=== PATIENT | male | born 1955 | race Hispanic/Latino ===

== ENCOUNTER 2016-06-20 21:52 | Inpatient (IN) | payer OTHER ==
[2016-06-20 21:54] VITALS: BMI 25.0
[2016-06-20] MEDS ORDERED: Vancomycin 1gm in NS 250ml 250 ML IVPB STA (22:06)
[2016-06-20] MEDS ORDERED: Piperacill/Tazo 4.5gm in NS 100 ML IVPB STA (22:06)
[2016-06-20 22:18] LABS: ADD MANUAL DIFF? NO
--- NOTE | 2016-06-20 22:22 | ED PDOC ---
Arrival/HPI - General Historian: Patient - History of Present Illness Time/Duration: 1/2 hour Symptom Onset: Gradual Symptom Course: Unchanged Severity Level: Mild Activities at Onset: Light Context: Home <Darion Buitrago - Last Filed: 06/20/16 22:53> <Mike Crowley - Last Filed: 06/23/16 17:30> - General Chief Complaint: Substance Abuse Time Seen by Provider: 06/20/16 21:56 - History of Present Illness Narrative History of Present Illness (Text): 06/20/16 22:20 Eliecer Sousa is a 61 year old male who presents to the emergency department for evaluation of altered mental status. As per EMS and nursing reports, patient was found altered pacing back and forth, and speaking incoherently. Currently in the emergency department patient denies any complaints and does not know who called the ambulance or why he is here. ROS limited due to AMS. (Darion Buitrago) Past Medical History - Provider Review Nursing Documentation Reviewed: Yes - Infectious Disease Hx of Infectious Diseases: None - Psychiatric Hx Substance Use: Yes (unknown) - Anesthesia Hx Anesthesia: No Hx Anesthesia Reactions: No Hx Malignant Hyperthermia: No <Darion Buitrago - Last Filed: 06/20/16 22:53> Family/Social History - Physician Review Nursing Documentation Reviewed: Yes Family/Social History: No Known Family HX Smoking Status: Unknown If Ever Smoked Hx Alcohol Use: No Hx Substance Use: Yes (unknown) <Darion Buitrago - Last Filed: 06/20/16 22:53> Allergies/Home Meds <Darion Buitrago - Last Filed: 06/20/16 22:53> <Mike Crowley - Last Filed: 06/23/16 17:30> Allergies/Adverse Reactions: Allergies No Known Allergies Allergy (Verified 06/20/16 21:54) Home Medications: Home Meds Medication Instructions Recorded Confirmed Unobtainable 06/21/16 06/21/16 Review of Systems - Review of Systems Systems not reviewed;Unavailable: Altered Mental Status <Darion Buitrago - Last Filed: 06/20/16 22:53> Physical Exam Vital Signs Reviewed: Yes Temperature: Febrile Blood Pressure: Normal Pulse: Tachycardic Respiratory Rate: Normal Appearance: Positive for: Non-Toxic, Comfortable Pain Distress: None Mental Status: Positive for: other (Alert only to name. ) <Darion Buitrago - Last Filed: 06/20/16 22:53> <Mike Crowley - Last Filed: 06/23/16 17:30> - Physical Exam Narrative Physical Exam (Text): - Physical exam Patient appears age appropriate and alert only to name. - Systems Exam Head: Present: Atraumatic, Normocephalic Pupils: Present: PERRL Extraocular Muscles: Present: EOMI Conjunctiva: Present: Normal Mouth: Present: Moist Mucous Membranes Neck: Present: Normal Range of Motion. No: MIDLINE TENDERNESS, Paraspinal Tenderness Respiratory/Chest: Present: Clear to Auscultation, Good Air Exchange. No: Respiratory Distress, Accessory Muscle Use, Tachypneic Cardiovascular: Present: Tachycardia, Normal S1, S2, Peripheral Pulses Present. No: Murmurs Abdomen: Present: Normal Bowel Sounds, No: Tenderness, Peritoneal Signs, Rebound, Guarding, Distention Back: Present: Normal Inspection. No: Midline Tenderness, Paraspinal Tenderness Upper Extremity: Present: Normal Inspection. No: Cyanosis, Edema Lower Extremity: Present: Normal Inspection. No: Edema Neurological: Present: GCS=15, cranial nerves II through XII fully intact with no cerebellar abnormality, neuro-sensory fully intact. No focal neurological deficits. Skin: Present: Diaphoresis, Warm, Dry, Normal Color. No: Rashes Lymphatic: Present: OX3, NI, NC Psychiatric: Present: Alert only to name. (Darion Buitrago) Vital Signs Temp Pulse Resp BP Pulse Ox 06/21/16 04:31 68 18 138/81 96 06/21/16 03:11 98.0 F 79 16 153/73 H 95 06/21/16 01:10 97.9 F 102 H 16 117/75 96 06/21/16 00:33 98 F 96 H 16 145/86 95 06/20/16 22:36 101.1 F H 06/20/16 21:54 101.6 F H 116 H 20 146/65 96 Medical Decision Making <Darion Buitrago - Last Filed: 06/20/16 22:53> - RAD Interpretation Senior Analyst Programmer: Radiologist <Mike Crowley - Last Filed: 06/23/16 17:30> ED Course and Treatment: 06/20/16 22:26 Impression: A 61 year old male who presents to the emergency department for AMS. Patient with elevated temperature and appropriately tachy at 115 bpm. Differential Diagnosis include but are not limited to: Sepsis vs. dehydration Plan: -- CT Head -- EKG -- Labs, cardiac enzymes -- Drug screen -- Chest X-ray -- IV fluids -- Tylenol -- Vancomycin -- Zosyn -- Blood culture -- Urine culture -- Rapid flu -- Urinalysis -- Reassess and disposition Progress Notes: 06/20/16 22:29 EKG interpreted by me: Sinus Tachycardia @ [address]-segment elevations, normal intervals. 06/20/16 23:[address] Crowley, pending imaging, reeval, admission (Darion Buitrago) 06/21/16 01:10 CT Head results reviewed: IMPRESSION: No acute intracranial hemorrhage, or suspicious mass effect 06/21/16 01:[address] Robertson who agrees with the plan to admit patient to the hospital. Accepts patient under his service. 06/23/16 17:30 (Mike Crowley) - Lab Interpretations Microbiology Results: Microbiology Results 06/20/16 22:53 Blood Blood Culture - Preliminary NO GROWTH AFTER 48 HOURS 06/20/16 22:21 Blood Blood Culture - Preliminary NO GROWTH AFTER 48 HOURS 06/20/16 23:00 Urine Urine Culture - Final No Growth (<1,000 CFU/ML) Lab Results: 06/20/16 22:05 06/20/16 22:05 Lab Results 06/21/16 01:10: Influenza Typ A,B (EIA) Negative for flu a/b 06/20/16 23:00: Urine Color Yellow, Urine Appearance Slight-cloudy, Urine pH 5.5 , Ur Specific [place] >= 1.030, Urine Protein Trace H, Urine Glucose (UA) Negative, Urine Ketones Negative, Urine Blood Negative, Urine Nitrate Negative, Urine Bilirubin Negative, Urine Urobilinogen 1.0 H, Ur Leukocyte Esterase Negative, Urine RBC 0 - 2, Urine WBC 0 - 2, Ur Epithelial Cells 0 - 2, Urine Bacteria Rare, Hyaline Casts 0 - 2, Urine Opiates Screen Positive H, Urine Methadone Screen Negative, Ur Barbiturates Screen Negative, Ur Phencyclidine Scrn Negative, Ur Amphetamines Screen Negative, U Benzodiazepines Scrn Negative , U Oth Cocaine Metabols Negative, U Cannabinoids Screen Negative 06/20/16 22:05: WBC 7.6, RBC 4.14, Hgb 12.4 L, Hct 38.6 L, MCV 93.2, MCH 30.0, MCHC 32.1, RDW 14.7 H, Plt Count 141, MPV 10.7, Gran % 71.5 H, Lymph % (Auto) 14.3 L, [place] % (Auto) 13.6 H, Eos % (Auto) 0.5 L, Baso % (Auto) 0.1, Gran # 5.45 , Lymph # 1.1 L, [place] # 1.0 H, Eos # 0.0, Baso # 0.01, PT 12.2 H, INR 1.13 H, APTT 23.8, pO2 75 H, VBG pH 7.28 L, VBG pCO2 54.0, VBG HCO3 25.4, VBG Total CO2 27.1, VBG O2 Sat (Calc) 96.2 H, VBG Base Excess -2.2 L, VBG Potassium 4.7, Glucose 120 H, Lactate 1.4, FiO2 21.0, Sodium 139.0, Potassium 4.8, Chloride 107.0, Carbon Dioxide 26, Anion Gap 14, BUN 15, Creatinine 1.2, Est GFR ( Amer) > 60, Est GFR (Non-Af Amer) > 60, Random Glucose 119 H, Calcium 8.7, Phosphorus 4.0, Magnesium 1.7, Total Bilirubin 1.2, AST 60 H, ALT 56, Alkaline Phosphatase 74, Lactate Dehydrogenase 535, Total Creatine Kinase 152, Troponin I < 0.01, Total Protein 8.1, Albumin 4.1, Globulin 4.0, Albumin/ Globulin Ratio 1.0 L, Venous Blood Potassium 4.7 - RAD Interpretation Narrative RAD Interpretations (Text): EXAM: CT Head Without Intravenous Contrast FINDINGS: Brain: No acute intracranial hemorrhage. Age-appropriate periventricular white matter disease. No edema. Ventricles: Age-appropriate ventriculomegaly. Bones: No acute displaced fracture. Sinuses: Unremarkable as visualized. No acute sinusitis. Mastoid air cells: Unremarkable as visualized. No mastoid effusion. IMPRESSION: No acute intracranial hemorrhage, or suspicious mass effect (Mike Crowley) Radiology Orders: 06/20/16 22:04 HEAD W/O CONTRAST [CT] Stat 06/20/16 22:06 CHEST PORTABLE [RAD] Stat - Medication Orders Current Medication Orders: Acetaminophen (Tylenol 325mg Tab) 650 mg PO Q4H PRN PRN Reason: Fever >100.5 F Albuterol/Ipratropium (Duoneb 3 Mg/0.5 Mg (3 Ml) Ud) 3 ml IH [id number] [facility] Last Admin: 06/23/16 13:35 Dose: 3 ML Apixaban (Eliquis) 10 mg PO BID CATHRYN PRN Reason: Protocol Last Admin: 06/23/16 10:38 Dose: 10 MG Azithromycin (Zithromax) 500 mg PO DAILY [facility] PRN Reason: Protocol Last Admin: 06/23/16 10:38 Dose: 500 MG Ceftriaxone Sodium (Rocephin 1 Gram Ivpb) 100 mls @ 100 mls/hr IVPB DAILY [facility] PRN Reason: Protocol Last Admin: 06/23/16 10:39 Dose: 100 MLS/HR eMAR Start Stop Document 06/23/16 10:39 MCV (Rec: 06/23/16 10:40 MCV [id number]) Intravenous Solution Start Date 06/23/16 Start Time 10:39 End Date 06/23/16 End time 11:39 Total Infusion Time 60 Losartan Potassium (Cozaar) 50 mg PO DAILY [facility] Last Admin: 06/23/16 10:38 Dose: 50 MG MAR Pulse and Blood Pressure Document 06/23/16 10:38 MCV (Rec: 06/23/16 10:39 MCV [id number]) Pulse Pulse Rate (60-90) 67 Blood Pressure Blood Pressure (100/60-150/90) 126/76 Discontinued Medications Acetaminophen (Tylenol 325mg Tab) 975 mg PO STAT STA Stop: 06/20/16 22:06 Last Admin: 06/20/16 22:36 Dose: 975 MG MAR Pain/Vitals Document 06/20/16 22:36 FJA (Rec: 06/20/16 22:36 FJA [id number]) Vitals Temperature (97.6 F-99.6 F) 101.1 F Temperature Source Rectal Sodium Chloride (Sodium Chloride 0.9%) 2,200 mls @ 1,000 mls/hr IV .Q2H12M STA Stop: 06/21/16 00:16 Last Admin: 06/20/16 22:27 Dose: 1,000 MLS/HR eMAR Start Stop Document 06/20/16 22:27 FJA (Rec: 06/20/16 22:27 FJA [id number]) Intravenous Solution Start Date 06/20/16 Start Time 22:27 End Date 06/21/16 End time 00:27 Total Infusion Time 120 Piperacillin Sod/Tazobactam Sod (Zosyn 4.5 Gm In Ns 100ml) 100 mls @ 200 mls/ hr IVPB STAT STA PRN Reason: Protocol Stop: 06/20/16 22:35 Last Admin: 06/20/16 22:37 Dose: 200 MLS/HR eMAR Start Stop Document 06/20/16 22:37 FJA (Rec: 06/20/16 22:37 FJA [id number]) Intravenous Solution Start Date 06/20/16 Start Time 22:37 End Date 06/20/16 End time 23:07 Total Infusion Time 30 Vancomycin HCl (Vancomycin 1gm) 250 mls @ 167 mls/hr IVPB STAT STA PRN Reason: Protocol Stop: 06/20/16 23:35 Last Admin: 06/21/16 00:31 Dose: 167 MLS/HR eMAR Start Stop Document 06/21/16 00:31 FJA (Rec: 06/21/16 00:32 FJA [id number]) Intravenous Solution Start Date 06/21/16 Start Time 00:31 End Date 06/21/16 End time 02:01 Total Infusion Time 90 Acyclovir 700 mg/ Sodium (Chloride) 100 mls @ 100 mls/hr IV STAT STA PRN Reason: Protocol Stop: 06/21/16 04:00 Last Admin: 06/21/16 04:37 Dose: 100 MLS/HR eMAR Start Stop Document 06/21/16 04:37 GMD (Rec: 06/21/16 04:37 GMD [id number]) Intravenous Solution Start Date 06/21/16 Start Time 04:37 End Date 06/21/16 End time 05:37 Total Infusion Time 60 Sodium Chloride (Sodium Chloride 0.9%) 1,000 mls @ 100 mls/hr IV .Q10H STA Stop: 06/21/16 13:02 Last Admin: 06/21/16 04:21 Dose: 100 MLS/HR eMAR Start Stop Document 06/21/16 04:21 GMD (Rec: 06/21/16 04:21 GMD [id number]) Intravenous Solution Start Date 06/21/16 Start Time 04:21 Piperacillin Sod/Tazobactam Sod (Zosyn 3.375 In Ns 100ml) 100 mls @ 200 mls/hr IVPB Q6 CATHRYN PRN Reason: Protocol Stop: 06/22/16 00:29 Last Admin: 06/21/16 23:59 Dose: 200 MLS/HR eMAR Start Stop Document 06/21/16 23:59 [email or web address] (Rec: 06/21/16 23:59 [email or web address] [id number]) Intravenous Solution Start Date 06/21/16 Start Time 23:59 End Date 06/22/16 End time 00:30 Total Infusion Time 31 Iodixanol (Visipaque 320 Mg/Ml 100 Ml) Confirm Administered Dose 100 ml IV .STK- MED ONE Stop: 06/21/16 14:40 - Scribe Statement The provider has reviewed the documentation as recorded by the Scribe <Darion Buitrago - Last Filed: 06/20/16 22:53> <Mike Crowley - Last Filed: 06/23/16 17:30> - Scribe Statement Harish Riojas (Darion Buitrago) Provider Attestation: All medical record entries made by the Scribe were at my direction and personally dictated by me. I have reviewed the chart and agree that the record accurately reflects my personal performance of the history, physical exam, medical decision making, and the department course for this patient. I have also personally directed, reviewed, and agree with the discharge instructions and disposition. (Darion Buitrago) Disposition/Present on Arrival - Present on Arrival Any Indicators Present on Arrival: No History of DVT/PE: No History of Uncontrolled Diabetes: No Urinary Catheter: No History of Decub. Ulcer: No History Surgical Site Infection Following: None - Disposition Have Diagnosis and Disposition been Completed?: Yes Disposition Time: 23:07 Patient Plan: Admission <Darion Buitrago - Last Filed: 06/20/16 22:53> - Present on Arrival Any Indicators Present on Arrival: No - Disposition Have Diagnosis and Disposition been Completed?: Yes Disposition Time: 02:00 <Mike Crowley - Last Filed: 06/23/16 17:30> - Disposition Diagnosis: Fever, Altered mental status Disposition: HOSPITALIZED Patient Problems: Current Active Problems Problem Status Diagnosed Fever Acute Condition: FAIR
[2016-06-20 22:26] LABS: VENOUS BLOOD GAS BASE EXCESS -2.2 mmol/L (0.0-2.0); VENOUS BLOOD PH 7.28 (7.32-7.43)
--- NOTE | 2016-06-20 22:28 | ED PDOC ---
Arrival/HPI - General Chief Complaint: Substance Abuse Time Seen by Provider: 06/20/16 21:56 Past Medical History - Infectious Disease Hx of Infectious Diseases: None - Psychiatric Hx Substance Use: Yes (unknown) - Anesthesia Hx Anesthesia: No Hx Anesthesia Reactions: No Hx Malignant Hyperthermia: No Family/Social History Smoking Status: Unknown If Ever Smoked Hx Alcohol Use: No Hx Substance Use: Yes (unknown) Allergies/Home Meds Allergies/Adverse Reactions: Allergies No Known Allergies Allergy (Verified 06/20/16 21:54) Physical Exam Vital Signs Temp Pulse Resp BP Pulse Ox 06/20/16 21:54 101.6 F H 116 H 20 146/65 96 Medical Decision Making - RAD Interpretation Radiology Orders: 06/20/16 22:04 HEAD W/O CONTRAST [CT] Stat 06/20/16 22:06 CHEST PORTABLE [RAD] Stat - Medication Orders Current Medication Orders: Acetaminophen (Tylenol 325mg Tab) 975 mg PO STAT STA Stop: 06/20/16 22:06 Sodium Chloride (Sodium Chloride 0.9%) 2,200 mls @ 1,000 mls/hr IV .Q2H12M STA Stop: 06/21/16 00:16 Piperacillin Sod/Tazobactam Sod (Zosyn 4.5 Gm In Ns 100ml) 100 mls @ 200 mls/ hr IVPB STAT STA PRN Reason: Protocol Stop: 06/20/16 22:35 Vancomycin HCl (Vancomycin 1gm) 250 mls @ 167 mls/hr IVPB STAT STA PRN Reason: Protocol Stop: 06/20/16 23:35 Disposition/Present on Arrival - Present on Arrival History of DVT/PE: No History of Uncontrolled Diabetes: No Urinary Catheter: No History of Decub. Ulcer: No History Surgical Site Infection Following: None
[2016-06-20 22:32] LABS: ALKALINE PHOSPHATASE 74 U/L (38-133); ALT/SGPT 56 U/L (7-56); AST/SGOT 60 U/L (15-59); BILIRUBIN,TOTAL 1.2 mg/dL (0.2-1.3); BLOOD UREA NITROGEN 15 mg/dL (7-21); CALCIUM 8.7 mg/dL (8.4-10.5); CARBON DIOXIDE 26 mmol/L (21-33); CHLORIDE 104 mmol/L (98-107); GFR AFRICAN-AMERICAN > 60; GLUCOSE,RANDOM 119 mg/dL (70-110); MAGNESIUM 1.7 mg/dL (1.7-2.2); POTASSIUM 4.8 mmol/L (3.6-5.0); SODIUM 139 mmol/L (132-148); TOTAL PROTEIN 8.1 g/dL (5.8-8.3)
[2016-06-20 22:38] LABS: INR 1.13 (0.93-1.08); PARTIAL THROMBOPLASTIN TIME 23.8 Seconds (23.7-30.8)
[2016-06-20 22:47] LABS: TROPONIN I < 0.01 ng/mL
[2016-06-20 22:57] LABS: GRAN % 71.5 % (50.0-68.0); HEMATOCRIT 38.6 % (42.0-52.0); LYMPH % 14.3 % (22.0-35.0); MEAN CELL VOLUME 93.2 fL (80.0-105.0); MEAN CORPUSCULAR HGB CONC 32.1 g/dl (31.0-37.0); MEAN PLATELET VOLUME 10.7 fl (7.0-11.0); MONO % 13.6 % (1.0-6.0); PLATELET COUNT 141 10^3/uL (120.0-450.0); RED CELL DISTRIBUTION WIDTH 14.7 % (11.5-14.5); WHITE BLOOD COUNT 7.6 10^3/ul (4.5-11.0)
[2016-06-20 22:58] LABS: BASO # 0.01 K/mm3 (0.0-2.0); BASO % 0.1 % (0.0-3.0); EOS % 0.5 % (1.5-5.0); GRAN # 5.45 (1.4-6.5); LYMPH # 1.1 (1.2-3.4)
[2016-06-20 23:31] LABS: PH,URINE 5.5 (4.7-8.0); URINE BILIRUBIN NEGATIVE (NEGATIVE); URINE BLOOD NEGATIVE (NEGATIVE); URINE GLUCOSE (UA) NEGATIVE (NEGATIVE); URINE KETONE NEGATIVE (NEGATIVE); URINE LEUKOCYTE ESTERASE NEGATIVE Leu/uL (NEGATIVE); URINE PROTEIN TRACE mg/dL (<30 mg/dL)
[2016-06-20 23:45] LABS: URINE APPEARANCE SLIGHT-CLOUDY (CLEAR); URINE COLOR YELLOW (YELLOW)
[2016-06-21 00:40] LABS: URINE BACTERIA RARE (NEG); URINE EPITHELIAL CELLS 0 - 2 /hpf (0-5); URINE RBC 0 - 2 /hpf (0-2); URINE WBC 0 - 2 /hpf (0-6)
[2016-06-21] MEDS ORDERED: Sodium Chloride 0.9% 1,000 ML IV STA (03:03)
--- NOTE | 2016-06-21 08:05 | CT ---
PROCEDURE: CT HEAD WITHOUT CONTRAST. HISTORY: ONEILL x2 weeks COMPARISON: None available. TECHNIQUE: Axial computed tomography images were obtained through the head/brain without intravenous contrast. Radiation dose: Total exam DLP = 896.20 mGy-cm. This CT exam was performed using one or more of the following dose reduction techniques: Automated exposure control, adjustment of the mA and/or kV according to patient size, and/or use of iterative reconstruction technique. FINDINGS: HEMORRHAGE: No intracranial hemorrhage. BRAIN: No mass effect or edema. Minimal diffuse age-appropriate cerebral atrophy. No significant chronic white matter ischemic change. VENTRICLES: Unremarkable. No hydrocephalus. CALVARIUM: Unremarkable. PARANASAL SINUSES: Unremarkable as visualized. No significant inflammatory changes. MASTOID AIR CELLS: Unremarkable as visualized. No inflammatory changes. OTHER FINDINGS: None. IMPRESSION: No intracranial mass, hemorrhage or evidence of acute infarct. Preliminary interpretation of this examination was reported by [facility] at 11:30 p.m. on 06/20/2016. There is concurrence of this report with the preliminary interpretation.
--- NOTE | 2016-06-21 08:40 | RAD ---
HISTORY: Sepsis Patient COMPARISON: No prior. FINDINGS: LUNGS: No active pulmonary disease. PLEURA: No significant pleural effusion identified, no pneumothorax apparent. CARDIOVASCULAR: Normal. OSSEOUS STRUCTURES: No significant abnormalities. VISUALIZED UPPER ABDOMEN: Normal. OTHER FINDINGS: None. IMPRESSION: No active disease.
[2016-06-21] MEDS ORDERED: Iodixanol 320 MG/ML 100 ML BOTTLE IV ONE (14:39)
--- NOTE | 2016-06-21 15:45 | HP ---
HISTORY OF PRESENT ILLNESS: The patient is a 61-year-old male with no history of hypertension, diabe nikos or heart disease, admitted through the Emergency Department on 06/20/2016 with altered mental sta tus with confusion of undetermined duration, fever of 101.6 and tachycardia. The patient is admitted to the surgical floor and given a dose of Zosyn and vancomycin empirically for possible cellulitis o f the left leg. The patient denies any chest pain or shortness of breath. He reports being confused over the past several months. PAST MEDICAL HISTORY: Includes lumbar radiculopathy with chronic opiate dependence. PAST SURGICAL HISTORY: The patient has no significant past surgical history. CURRENT MEDICATIONS: Include oxycodone 30 mg q. 6 hours. ALLERGIES: The patient has no known drug allergies. SOCIAL HISTORY: There is no history of tobacco, alcohol or drug use. FAMILY HISTORY: Noncontributory. REVIEW OF SYSTEMS: Essentially negative other than as above. PHYSICAL EXAMINATION: GENERAL: The patient is a well-developed male in no acute distress. VITAL SIGNS: Blood pressure 151/88, temperature 98, pulse 62, respiratory rate 20. HEENT: Head is normocephalic, atraumatic. Pupils equal, round, reactive to light. Extraocular move ments intact. NECK: Supple, with no thyromegaly, no carotid bruit, no adenopathy. LUNGS: Clear. HEART: Regular rate and rhythm. ABDOMEN: Soft, nontender, bowel sounds are normoactive. EXTREMITIES: Without cyanosis or clubbing. There is some swelling of the left lower extremity with mild warmth, dorsalis pedis, posterior tibial and popliteal pulses are intact. NEUROLOGIC: The patient is awake and slightly confused without focal sensory or motor deficits. SKIN: Warm and dry. LABORATORY DATA: WBC is 7.6, hemoglobin 12.4, hematocrit 38.6, sodium 139, potassium 4.8, chloride 1 04, CO2 26, BUN 15, creatinine 1.2, glucose 119. ABG shows pH 7.28, pCO2 of 54, pO2 75, bicarbonate 25.4, O2 saturation 96.2% on room air. D-dimer is slightly elevated at 0.69. IMPRESSION: 1. Altered mental status, rule out due to acute infection, possible cellulitis of the left leg, rule out acute pulmonary embolism. 2. Hypertension. 3. History of lumbar radiculopathy with opiate dependence. PLAN: The patient is admitted to the medical surgical floor. We will obtain stat venous Doppler and CT angiogram of chest. The patient has been started empirically on Zosyn 3.375 grams q. 6 hours for possible cellulitis of the left leg. We will monitor closely. George Robertson JD, MD cc: [phone] TT: 06/21/2016 15:44:48 an
--- NOTE | 2016-06-21 15:55 | CT ---
PROCEDURE: CT Chest with contrast (Pulmonary Angiogram) HISTORY: PE COMPARISON: None available. TECHNIQUE: Axial computed tomography images were obtained of the chest in the pulmonary arterial phase of enhancement. Coronal and sagittal reformatted images were created and reviewed. Intravenous contrast dose: 100 mL Visipaque 320 Radiation dose: Total exam DLP = 574.27 mGy-cm. This CT exam was performed using one or more of the following dose reduction techniques: Automated exposure control, adjustment of the mA and/or kV according to patient size, and/or use of iterative reconstruction technique. FINDINGS: PULMONARY ARTERIES: Unremarkable. No pulmonary embolism. AORTA: No acute findings. No thoracic aortic aneurysm. LUNGS: Few areas of patchy opacity in the left upper lobe rib, nonspecific. Possible early pneumonia. 7 mm noncalcified nodule in left lower lobe. As per Fleischner society criteria, followup in 6-12 months with noncontrast chest CT examination. PLEURAL SPACES: Unremarkable. No effusion or pneuomothorax. HEART: Unremarkable. No cardiomegaly. No significant pericardial effusion. LYMPH NODES: No lymphadenopathy. BONES, CHEST WALL: Unremarkable. No fracture or destructive lesion OTHER FINDINGS: Unremarkable. IMPRESSION: No evidence of pulmonary embolism. Few patchy opacities in the right upper lobe, nonspecific but possible early pneumonia. 7 mm nodule in left lower lobe. Followup in 6-12 months with noncontrast chest CT examination. Otherwise unremarkable.
[2016-06-21] MEDS: Piperacillin/Tazobact 3.375 gm 100 ML IVPB SCH ×2 (17:15→23:59)
--- NOTE | 2016-06-21 17:22 | US ---
PROCEDURE: Left lower extremity venous US HISTORY: Leg pain and swelling. Evaluate for DVT. PHYSICIAN(S): Guido Menjivar MD. TECHNIQUE: Duplex sonography and color-flow Doppler with graded compression were used to evaluate the deep venous system of the left lower extremity. FINDINGS: Adherent nonocclusive thrombus is noted in the left common femoral vein. The left femoral vein and proximal left profunda femoral vein are patent and normal. The left popliteal vein and visualized left tibial veins are patent and compressible. IMPRESSION: 1. Adherent, chronic, nonocclusive thrombus in the left common femoral vein.
--- NOTE | 2016-06-21 18:32 | CON ---
DATE: 06/21/2016 HISTORY OF PRESENT ILLNESS: This is a 61-year-old white male with a past medical history of hyperten amee, diabetes, who came to the Emergency Room with altered mental status and confusion with a fever of 101.6 and possible cellulitis of the left leg. The patient is ambulating. Less confused now. PAST MEDICAL HISTORY: Lumbar radiculopathy and chronic opiate dependence. CURRENT MEDICATIONS: Oxycodone 30 mg q.6 hours. SOCIAL HISTORY: Does not smoke or drink. REVIEW OF SYSTEMS: A 10-point review of system was negative except left leg pain. PHYSICAL EXAMINATION: HEENT: Normocephalic, atraumatic. VITAL SIGNS: Blood pressure 151/88. HEENT: Pupils reactive. EOM intact. NECK: Supple. NEUROLOGIC: Cranial nerves II through XII were tested. Pupils reactive. EOM intact. Visual garcia full. No facial asymmetry. Tongue midline. Motor examination: Moves all the extremities equally. Tone normal. Deep tendon reflexes 1+. Both plantars are downgoing. Sensory appears intact. Cere bellar and gait normal. IMPRESSION: Intermittent confusional state, encephalopathy, low back pain, possible lumbosacral radi culopathy, deep venous thrombosis, chronic. PLAN: Continue present management. Will followup. Dean Ko MD cc: [id number] TT: 06/21/2016 18:31:39 Confirmation # [id number] Dictation # [id number] kristy
--- NOTE | 2016-06-21 18:42 | CARD ---
APPROVED REPORT EKG Measurement Heart [id number] <Conclusion> Sinus tachycardia Otherwise normal ECG
[2016-06-22] MEDS: cefTRIAXone 1 gm 100 ML IVPB SCH (13:28)
--- NOTE | 2016-06-22 13:33 | PN ---
DATE: 06/22/2016 SUBJECTIVE: The patient is lying in bed, in no acute distress. There is no chest pain, no shortness of breath. OBJECTIVE: VITAL SIGNS: Blood pressure 160/91, temperature 98, pulse 91, respiratory rate 20. LUNGS: Clear. HEART: Regular rate and rhythm. ABDOMEN: Soft, nontender, bowel sounds are normoactive. EXTREMITIES: Without cyanosis, clubbing, or edema. NEUROLOGIC: The patient is awake and oriented x 3 without focal, sensory or motor deficits. SKIN: Warm and dry. LABORATORY DATA: Venous Doppler of the lower extremity shows a chronic nonocclusive thrombus of the left common femoral vein. CT scan of the chest shows a 7 mm pulmonary nodule in the left lower lobe with a few patchy opacities in the right upper lobe. IMPRESSION: 1. Altered mental status, rule out secondary to pneumonia, rule out secondary to cellulitis of the l ower extremities. 2. Chronic deep vein thrombosis of the lower extremities. 3. Lumbar radiculopathy with chronic pain and opiate dependence. PLAN: Neurology consult, Dr. Ko, is appreciated. CT scan of the lumbosacral spine is pending. We will start losartan 50 mg daily for elevated blood pressure. We will obtain pulmonary consultatio n with Dr. Prince. We will continue Eliquis at the present time and observe. We will continue IV an tibiotics with Rocephin 1 gram q. 24 hours as well. George Robertson JD, MD cc: [phone] TT: 06/22/2016 13:32:21 Confirmation # [id number] Dictation # [id number] en
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
[2016-06-22] MEDS: Albuterol-Ipratrop 3 mg / 0.5 (3 ml) UD IH SCH ×2 (20:30→23:47)
[2016-06-23] MEDS: Albuterol-Ipratrop 3 mg / 0.5 (3 ml) UD IH SCH ×4 (02:08→20:17)
[2016-06-23] MEDS: cefTRIAXone 1 gm 100 ML IVPB SCH (10:39)
--- NOTE | 2016-06-23 16:44 | PN ---
DATE: 06/23/2016 SUBJECTIVE: The patient is lying in bed in no acute distress. There is no chest pain or shortness o f breath. OBJECTIVE: VITAL SIGNS: Blood pressure 126/76, pulse 67, temperature 98.1, respiratory rate 20. LUNGS: Show a few scattered rhonchi. HEART: Regular rate and rhythm. ABDOMEN: Soft, nontender, bowel sounds are normoactive. EXTREMITIES: Without cyanosis, clubbing, or edema. NEUROLOGIC: The patient is awake and alert without focal, sensory or motor deficits. SKIN: Warm and dry. IMPRESSION: 1. Pneumonia. 2. Chronic deep vein thrombosis of the lower extremities. 3. Cellulitis of the left leg. 4. Lumbar radiculopathy with chronic pain and opiate dependence. 5. Altered mental status, rule out dementia with superimposed delirium. PLAN: Continue IV Rocephin, continue pulmonary followup with Dr. Prince, and neurology followup with Dr. Ko. We will continue Eliquis at the present time and observe. Social work for discharge [facility]. George Robertson JD, MD cc: [id number] TT: 06/23/2016 16:43:32 Confirmation # [id number] Dictation # [id number] alba
--- NOTE | 2016-06-23 22:40 | PN ---
DATE: 06/23/2016 REFERRING PHYSICIAN: Dr. Robertson. SUBJECTIVELY: He is lying in the bed, head at 45 degrees. Still has cough and shortness of breath. No nausea, no vomiting, no diarrhea. Leg pain and erythema is much better. OBJECTIVELY: No acute distress. Temp is 98, heart rate is 72, respiratory rate is 18, blood pressure 137/80, pulse ox 98% on room air . HENT: Moist mucous membranes. Crowded airway. NECK: Supple, no JVD. LUNGS: Have scattered rhonchi. HEART: S1 and S2. ABDOMEN: Soft, nontender. No organomegaly. EXTREMITIES: Left ankle skin irritation. NEUROLOGICALLY: Awake, alert. Follows simple commands. MEDICATIONS: He is on Cozaar 50 mg daily, DuoNeb q. 6 hours, Eliquis 10 mg twice a day, Rocephin 1 g daily, Tylenol p.r.n., Zithromax 500 mg daily. LABORATORY DATA: Reviewed. No new medications reported. MICROBIOLOGY: Blood culture, urine culture: There is no growth. IMPRESSION AND PLAN: Resolving pneumonia, left lower lobe nodule, may have chronic obstructive lung disease, chronic low back pain secondary to trauma, opiate dependent. May have a component of sleep apnea syndrome. Left leg cellulitis much better. Still has a cough. Will give short course of prednisone. Will give prednisone 20 mg now and daily for 2-3 days. Gastri c prophylaxis. Deep venous thrombosis prophylaxis. Thank you, and will follow with you. Nuris Prince MD cc: [id number] TT: 06/23/2016 22:39:34 Confirmation # [id number] Dictation # [id number] [email or web address]
[2016-06-24] MEDS: Albuterol-Ipratrop 3 mg / 0.5 (3 ml) UD IH SCH ×4 (02:29→20:45)
[2016-06-24] MEDS: cefTRIAXone 1 gm 100 ML IVPB SCH (09:25)
--- NOTE | 2016-06-24 11:43 | PN ---
DATE: 06/24/2016 SUBJECTIVE: The patient is lying in bed in no acute distress. There is no chest pain, no shortness of breath. He complains of a nonproductive cough. OBJECTIVE: VITAL SIGNS: Blood pressure 164/95, temperature 98, pulse 73, respiratory rate 18. LUNGS: Show a few scattered rhonchi bilaterally. HEART: Regular rate and rhythm. ABDOMEN: Soft, nontender. EXTREMITIES: No cyanosis, clubbing, or edema. NEUROLOGICALLY: The patient is awake and alert without focal, sensory, or motor deficits. SKIN: Warm and dry. IMPRESSION: 1. Pneumonia. 2. Probable chronic obstructive pulmonary disease, rule out obstructive sleep apnea. 3. Chronic deep venous thrombosis of the lower extremities. 4. Cellulitis of the left leg, improving. 5. Lumbar radiculopathy with chronic pain and opiate dependence. 6. Altered mental status, rule out dementia with superimposed delirium, improving. PLAN: Continue IV Rocephin as well as Zithromax. Continue pulmonary followup with Dr. Prince, and n eurology followup with Dr. Ko. Will continue Eliquis and decrease to 5 mg in 1-2 days. Social w ork for discharge planning. George Robertson JD, MD cc: [id number] TT: 06/24/2016 11:43:01 Confirmation # [id number] Dictation # [id number] [email or web address]
--- NOTE | 2016-06-24 21:01 | PN ---
DATE: 06/24/2016 REFERRING PHYSICIAN: Dr. Robertson. SUBJECTIVELY: He is lying in the bed, head at 45 degrees, sleepy, arousable. No headache, no rhinit is. Cough is better. No nausea, vomiting, diarrhea, leg pain. or leg swelling. OBJECTIVELY: No acute distress. Temp is 98, heart rate 74, respiratory rate is 18, blood pressure 158/91, pulse ox 96% on room air. HENT: Moist mucous membranes. Crowded airway. Mallampati score is 4. NECK: Supple. No JVD. LUNGS: Have a fair airflow with few rhonchi. HEART: S1 and S2. ABDOMEN: Soft, nontender. No organomegaly. EXTREMITIES: There is no edema. NEUROLOGICALLY: Awake, alert. Follows simple commands. MEDICATIONS: He is on Cozaar 100 mg daily, DuoNeb q. 6 hours, Eliquis 10 mg twice a day, prednisone 20 mg daily, Rocephin 1 g daily, Tylenol p.r.n., Zithromax 500 mg daily. LABORATORY DATA: Shows no new lab is available. IMPRESSION AND PLAN: Resolving pneumonia, left lower lobe nodule, chronic obstructive lung disease, chronic back pain secondary to trauma, opiate dependence, history of chronic deep vein thrombosis ___ __. Has IVC filter. Continue p.o. and inhaled bronchodilator. Continue antibiotics. Keep head at 45 degrees. 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 Started on anticoagulation. Follow up labs in the morning. Thank you, and will follow with you. Nuris Prince MD cc: [id number] TT: 06/24/2016 21:01:05 Confirmation # [id number] Dictation # [id number] [email or web address]
[2016-06-25] MEDS: Albuterol-Ipratrop 3 mg / 0.5 (3 ml) UD IH SCH ×4 (04:19→20:42)
[2016-06-25 07:12] LABS: ALKALINE PHOSPHATASE 51 U/L (38-133); ALT/SGPT 55 U/L (7-56); AST/SGOT 42 U/L (15-59); BILIRUBIN,TOTAL 0.8 mg/dL (0.2-1.3); BLOOD UREA NITROGEN 24 mg/dL (7-21); CARBON DIOXIDE 30 mmol/L (21-33); CHLORIDE 102 mmol/L (98-107); GFR AFRICAN-AMERICAN > 60; GLUCOSE,RANDOM 105 mg/dL (70-110); POTASSIUM 4.2 mmol/L (3.6-5.0); SODIUM 138 mmol/L (132-148); TOTAL PROTEIN 7.6 g/dL (5.8-8.3)
[2016-06-25 07:44] LABS: INR 1.17 (0.93-1.08); PARTIAL THROMBOPLASTIN TIME 25.7 Seconds (23.7-30.8)
[2016-06-25 08:00] VITALS: RESP 20
[2016-06-25] MEDS: cefTRIAXone 1 gm 100 ML IVPB SCH (10:08)
--- NOTE | 2016-06-25 14:15 | PN ---
DATE: 06/25/2016 SUBJECTIVE: The patient is sitting up in bed in no acute distress. He denies chest pain or shortnes s of breath. He complains of slight cough which is decreased from previous. OBJECTIVE: VITAL SIGNS: Blood pressure 133/71, temperature 97.6, pulse 80, respiratory rate 20. LUNGS: Show a few crepitations in the right upper lung field, otherwise clear. HEART: Regular rate and rhythm. ABDOMEN: Soft, nontender, bowel sounds are normoactive. EXTREMITIES: Without cyanosis, clubbing, or edema. NEUROLOGIC: The patient is awake and alert without focal, sensory or motor deficits. SKIN: Warm and dry. IMPRESSION: 1. Chronic obstructive pulmonary disease with pneumonia, rule out obstructive sleep apnea. 2. Chronic deep vein thrombosis of the lower extremities. 3. Cellulitis of the left leg, improving. 4. Lumbar radiculopathy with chronic pain and opiate dependence. 5. Altered mental status, rule out mild dementia with superimposed delirium, possibly secondary to o veruse of opiates. PLAN: Continue IV Rocephin. Continue pulmonary followup with Dr. Prince. Check labs in [facility] work for discharge planning. George Robertson JD, MD cc: [id number] TT: 06/25/2016 14:14:22 Confirmation # [id number] Dictation # [id number] [email or web address]
--- NOTE | 2016-06-25 18:21 | PN ---
DATE: 06/25/2016 REFERRING PHYSICIAN: Dr. Robertson. SUBJECTIVE: He is walking in the room, feels better, decreased cough, decreased shortness of breath. No nausea, vomiting, diarrhea, decreased leg pain. OBJECTIVE: GENERAL: No acute distress. VITAL SIGNS: Temperature is 98, heart rate 76, respiratory rate is 20, blood pressure 128/82, pulse ox 98% on room air. HEENT: Moist mucous membrane. Crowded airway. NECK: Supple, no JVD. LUNGS: Have a fair airflow with few rhonchi. HEART: S1, S2. ABDOMEN: Soft, nontender. No organomegaly. EXTREMITIES: There is no edema. NEUROLOGIC: Awake, alert, follows simple command. MEDICATIONS: He is on Cozaar 100 mg daily, DuoNeb q. 6 hours, Eliquis 10 mg twice a day, prednisone 20 mg daily, Rocephin 1 gram daily, Tylenol p.r.n. basis, Zithromax 500 mg daily. LABORATORY DATA: Reviewed. INR 1.17. PTT is 26. Sodium 138, potassium 4.2, chloride 102, bicarbon ate 30, BUN 24, creatinine 1.1, glucose is 105, calcium 9.0, AST 42, ALT 55, alkaline phosphatase is 51, albumin is 3.8. MICROBIOLOGY: Blood culture and urine culture have been negative. IMPRESSION AND PLAN: Resolving pneumonia, left lower lobe nodule, chronic obstructive lung disease, chronic back pain secondary to previous trauma, opiates dependent, chronic DVP, history of IVC filter . Pulmonary point been doing well. Continue bronchodilator. Keep head elevated at 45 degrees. Gas tric prophylaxis. On anticoagulation. Fall precaution. Consider sleep study as outpatient. Decrea se prednisone to 10 mg daily and taper off the next 2 days. Will follow with you. Nuris Prince MD cc: [id number] TT: 06/25/2016 18:20:40 Confirmation # [id number] Dictation # [id number] mn
[2016-06-26] MEDS: Albuterol-Ipratrop 3 mg / 0.5 (3 ml) UD IH SCH ×4 (01:30→19:47)
[2016-06-26 07:07] LABS: ADD MANUAL DIFF? NO
[2016-06-26 07:24] LABS: EOS % 0.7 % (1.5-5.0); GRAN # 3.02 (1.4-6.5); GRAN % 55.1 % (50.0-68.0); HEMATOCRIT 36.1 % (42.0-52.0); LYMPH # 1.8 (1.2-3.4); LYMPH % 32.2 % (22.0-35.0); MEAN CELL VOLUME 93.5 fL (80.0-105.0); MEAN CORPUSCULAR HEMOGLOBIN 30.3 pg (25.0-35.0); MEAN CORPUSCULAR HGB CONC 32.4 g/dl (31.0-37.0); MEAN PLATELET VOLUME 10.9 fl (7.0-11.0); MONO # 0.7 (0.1-0.6); PLATELET COUNT 125 10^3/uL (120.0-450.0); RED CELL DISTRIBUTION WIDTH 14.6 % (11.5-14.5); WHITE BLOOD COUNT 5.5 10^3/ul (4.5-11.0)
[2016-06-26 07:34] LABS: ALKALINE PHOSPHATASE 54 U/L (38-133); ALT/SGPT 54 U/L (7-56); AST/SGOT 41 U/L (15-59); BILIRUBIN,TOTAL 0.6 mg/dL (0.2-1.3); BLOOD UREA NITROGEN 22 mg/dL (7-21); CALCIUM 8.9 mg/dL (8.4-10.5); CARBON DIOXIDE 29 mmol/L (21-33); CHLORIDE 100 mmol/L (95-110); GFR AFRICAN-AMERICAN > 60; GLUCOSE,RANDOM 89 mg/dL (70-110); POTASSIUM 4.3 mmol/L (3.6-5.0); SODIUM 135 mmol/L (132-148)
[2016-06-26] MEDS: cefTRIAXone 1 gm 100 ML IVPB SCH (10:19)
--- NOTE | 2016-06-26 15:21 | PN ---
DATE: 06/26/2016 SUBJECTIVE: The patient is sitting up in bed in no acute distress. There is no chest pain or shortn ess of breath. He denies cough. OBJECTIVE: VITAL SIGNS: Blood pressure 144/78, temperature 97.7, pulse 69, respiratory rate 20. LUNGS: Clear. HEART: Regular rate and rhythm. ABDOMEN: Soft, nontender, bowel sounds are normoactive. EXTREMITIES: Without cyanosis, clubbing, or edema. NEUROLOGIC: The patient is awake and alert without focal, sensory or motor deficits. SKIN: Warm and dry. LABORATORY DATA: WBC is 5.5, hemoglobin 11.7, hematocrit 36.1. Sodium 135, potassium 4.3, chloride 100, CO2 of 29, BUN 22, creatinine 0.8, glucose 89. IMPRESSION: 1. Chronic obstructive pulmonary disease with pneumonia, rule out obstructive sleep apnea. 2. Chronic deep venous thrombosis of the lower extremities. 3. Cellulitis of the left leg, improved. 4. Lumbar radiculopathy with chronic pain and opiate dependence. 5. Altered mental status, possibly secondary to overuse of opiates, rule out underlying mild dementi a. PLAN: I will discontinue IV Rocephin, discharge to home in a.m. if remains stable off IV antibiotics , continue pulmonary followup with Dr. Prince and social work for discharge planning. George Robertson JD, MD cc: [id number] TT: 06/26/2016 15:21:01 Confirmation # [id number] Dictation # [id number] [email or web address]
[2016-06-26 16:35] VITALS: TEMP 97.8
--- NOTE | 2016-06-26 17:16 | PN ---
DATE: 06/26/2016 REFERRING PHYSICIAN: Dr. Robertson. SUBJECTIVE: He is lying in the bed, sleepy, arousable. Night was unremarkable. No headache, no rhi nitis, no nausea, vomiting, diarrhea. No leg pain or leg swelling. OBJECTIVE: GENERAL: No acute distress. VITAL SIGNS: Temperature is 98, heart rate 74, respiratory rate is 20, blood pressure 137/86, pulse ox 99% on room air. HEENT: Moist mucous membranes. Crowded airway. NECK: Supple, no JVD. LUNGS: Have a fair airflow with few rhonchi. HEART: S1, S2. ABDOMEN: Soft, nontender. No organomegaly. EXTREMITIES: No edema. NEUROLOGIC: Awake, alert, follows simple commands. MEDICATIONS: He is on Cozaar 100 mg daily, DuoNeb q. 6 hours, Eliquis 5 mg twice a day, prednisone 1 0 mg daily, Tylenol p.r.n. basis. LABORATORY DATA: Shows hemoglobin 11.7, hematocrit 36.1, WBC 5.5, platelet is 125. Sodium 135, pota ssium 4.3, chloride 100, bicarbonate 29, BUN 22, creatinine 0.8, glucose is 18, calcium 8.9, AST 41, ALT 54, alkaline phosphatase is 54, albumin is 3.6. MICROBIOLOGY: Blood culture and urine culture unremarkable. IMPRESSION AND PLAN: Resolving pneumonia, left lower lobe nodule, chronic obstructive lung disease, chronic back pain secondary to previous trauma, chronic deep venous thrombosis, history of inferior v billy cava filter. Pulmonary point of view, he is doing well. Will decrease prednisone to 5 mg daily, bronchodilator, on anticoagulation. Fall precautions. Will need followup CAT scan to assure the st ability of lung nodule. We will follow with you. Nuris Prince MD cc: [id number] TT: 06/26/2016 17:16:00 Confirmation # [id number] Dictation # [id number] [email or web address]
[2016-06-27] MEDS: Albuterol-Ipratrop 3 mg / 0.5 (3 ml) UD IH SCH ×3 (01:19→13:39)
[2016-06-27 07:29] VITALS: BP 164/85; PULSE 64; O2SAT 98
--- NOTE | 2016-06-27 18:50 | DS ---
HOSPITAL COURSE: The patient is a 61-year-old male admitted through the Emergency Department on 06/2016 with fever and altered mental status. Workup including CT scan of the chest showed a few patc hy opacities in the right upper lobe with the possibility of early pneumonia. The patient was treate d with IV antibiotics including Rocephin and Zithromax. The patient was also treated for cellulitis of the left leg. A venous Doppler examination was performed which showed some clots in the left lowe r extremity. The patient was started empirically on Eliquis 10 mg twice daily and then this was decr eased to Eliquis 5 mg twice daily. Venous Doppler of the lower extremities showed an adherent chroni c nonocclusive thrombus in the left common femoral vein. The patient was seen in consultation by Dr. Prince for pulmonary as well as Dr. Ko for neurology. A CT scan of the head showed no acute ble eds, infarcts or tumors. The patient had an uneventful hospital course and is medically stable for d ischarge today. PHYSICAL EXAMINATION: VITAL SIGNS: Blood pressure 154/75, pulse 95, temperature 97.7, respiratory rate 20. LUNGS: Clear. HEART: Regular rate and rhythm. ABDOMEN: Soft, nontender. Bowel sounds are normoactive. EXTREMITIES: Without cyanosis, clubbing or edema. NEUROLOGIC: The patient is awake and oriented x 3 without focal sensory or motor deficits. IMPRESSION: 1. Chronic obstructive pulmonary disease with pneumonia. 2. Chronic deep vein thrombosis of the lower extremities. 3. Cellulitis of the left leg. 4. Lumbar radiculopathy with chronic pain and opiate dependence. 5. Altered mental status, possibly delirium due to medical problems, with superimposed opiate use. 6. Hypertension. PLAN: The patient will be discharged to home today in stable condition on the following medications: Eliquis 5 mg twice daily and losartan 100 mg daily. He will be followed up as an outpatient in the office within the next 1-2 weeks. He will be maintained on a heart-healthy diet, activities ad libi stephanie. George Robertson JD, MD cc: [id number] TT: 06/27/2016 18:49:46 mn
--- NOTE | 2016-06-27 19:23 | PN ---
DATE: 06/27/2016 REFERRING PHYSICIAN: Dr. Robertson SUBJECTIVE: He is lying in the bed, head at 45 degrees. No nausea, no vomiting, diarrhea, leg pain or leg swelling. OBJECTIVE: GENERAL: No acute distress. VITAL SIGNS: Temp is 98, heart rate is 64, respiratory rate is 20, blood pressure 164/85, pulse ox 9 8% on room air. HEENT: Moist mucous membrane. No ulcer or oral thrush noted. NECK: Supple. No JVD. LUNGS: Has a fair airflow with few rhonchi. HEART: S1, S2. ABDOMEN: Soft, nontender. No organomegaly. EXTREMITIES: No edema. NEUROLOGIC: Awake, alert, follows simple command. MEDICATIONS: Reviewed. No new changes in medication reported since yesterday. LABORATORY DATA: Reviewed. No new changes and no new lab is available since yesterday. IMPRESSION AND PLAN: Status post pneumonia, left lower lobe nodule, chronic obstructive lung disease , chronic back pain, history of chronic deep venous thrombosis. Has a history of inferior vena cava filter. Pulmonary point of view, doing well. He needs followup CAT scan to assure the stability of infiltrate and nodule. The patient will be followed by Dr. Robertson. Discontinue prednisone. Thank you and we will follow with you. Nuris Prince MD cc: [phone] TT: 06/27/2016 19:23:27 Confirmation # [id number] Dictation # [id number]
== END 2016-06-27 15:24 | disposition home or self-care (01) | DRG 541 ==
LOC: ED 21:52 → ERH 06-21 03:02 → 5RNO 06-21 05:41 → OBSVTOIN 06-22 10:00
PROVIDERS: ADMIT Internal Medicine; ATTEND Internal Medicine
DX: J44.0 Chronic obstructive pulmonary disease with (acute) lower respiratory infection (principal); J18.9 Pneumonia, unspecified organism; I82.512 Chronic embolism and thrombosis of left femoral vein; L03.116 Cellulitis of left lower limb; F11.20 Opioid dependence, uncomplicated; F05 Delirium due to known physiological condition; I10 Essential (primary) hypertension; G93.40 Encephalopathy, unspecified; M54.16 Radiculopathy, lumbar region; G89.21 Chronic pain due to trauma; R91.1 Solitary pulmonary nodule; Z79.02 Long term (current) use of antithrombotics/antiplatelets

== ENCOUNTER 2017-02-10 22:07 | Emergency (ER) | payer OTHER ==
[2017-02-10 22:08] VITALS: BMI 25.0
[2017-02-10 22:19] VITALS: BP 142/84; PULSE 80; RESP 18; TEMP 97.7; O2SAT 97
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
--- NOTE | 2017-02-10 23:06 | CT ---
EXAM: CT Head Without Intravenous Contrast CLINICAL HISTORY: 61 years old, male; Signs and symptoms; Visual disturbance; Additional info: Headache/right visual defect TECHNIQUE: Axial computed tomography images of the head/brain without intravenous contrast. All CT scans at this facility use one or more dose reduction techniques, viz.: automated exposure control; ma/kV adjustment per patient size (including targeted exams where dose is matched to indication; i.e. head); or iterative reconstruction technique. COMPARISON: CT - HEAD W/O CONTRAST 2016-06-20 23:16 FINDINGS: Brain: Mild atrophy. No intracranial hemorrhage. No mass. Dilated perivascular space vs chronic lacunar infarct about LEFT basal ganglia. No definite edema. Ventricles: No hydrocephalus. Bones/joints: No acute fracture. Soft tissues: Unremarkable. Sinuses: Scattered minimal mucosal thickening of ethmoid sinuses. Mastoid air cells: No mastoid effusion. Orbits: Unremarkable as visualized. IMPRESSION: 1. No definite acute intracranial abnormality. Acute infarction may be CT occult within first 24 hours. If a focal deficit persists, consider followup CT or MRI for further evaluation. 2. Incidental/non-acute findings are described above.
[2017-02-10 23:27] LABS: HEMATOCRIT 37.3 % (42.0-52.0); MEAN CELL VOLUME 93.7 fl (80.0-105.0); MEAN CORPUSCULAR HEMOGLOBIN 30.7 pg (25.0-35.0); MEAN CORPUSCULAR HGB CONC 32.7 g/dl (31.0-37.0); MEAN PLATELET VOLUME 10.6 fl (7.0-11.0); RED CELL DISTRIBUTION WIDTH 14.2 % (11.5-14.5); WHITE BLOOD COUNT 5.2 10^3/ul (4.5-11.0)
[2017-02-10 23:38] LABS: ALB/GLOB RATIO 1.2 (1.1-1.8); ALKALINE PHOSPHATASE 70 U/L (38-126); ALT/SGPT 57 U/L (7-56); AST/SGOT 46 U/L (17-59); BLOOD UREA NITROGEN 23 mg/dL (7-21); CALCIUM 8.9 mg/dL (8.4-10.5); CARBON DIOXIDE 27 mmol/L (21-33); CHLORIDE 105 mmol/L (98-107); GFR AFRICAN-AMERICAN > 60; GLUCOSE,RANDOM 88 mg/dL (70-110); POTASSIUM 4.5 mmol/L (3.6-5.0); SODIUM 140 mmol/L (132-148); TOTAL PROTEIN 7.1 g/dL (5.8-8.3)
[2017-02-10 23:44] LABS: INR 1.35 (0.93-1.08); PARTIAL THROMBOPLASTIN TIME 32.7 Seconds (25.1-36.5)
[2017-02-10 23:49] LABS: TROPONIN I < 0.01 ng/mL
--- NOTE | 2017-02-11 08:45 | RAD ---
PROCEDURE: CHEST RADIOGRAPH, 1 VIEW HISTORY: leg swelling COMPARISON: 06/20/2016 FINDINGS: LUNGS: Clear. PLEURA: No pneumothorax or pleural fluid seen. CARDIOVASCULAR: Normal. OSSEOUS STRUCTURES: No significant abnormalities. VISUALIZED UPPER ABDOMEN: Normal. OTHER FINDINGS: None. IMPRESSION: No active disease.
--- NOTE | 2017-02-11 10:12 | CARD ---
APPROVED REPORT EKG Measurement Heart [id number] <Conclusion> Normal sinus rhythm Normal ECG No change except the rate is slower
--- NOTE | 2017-02-12 13:59 | US ---
HISTORY: Leg pain and swelling. Evaluate for DVT PHYSICIAN(S): Guido Menjivar MD. TECHNIQUE: Duplex sonography and color-flow Doppler with graded compression were used to evaluate the deep venous systems of both lower extremities. FINDINGS: There are post phlebitic changes in the left external iliac vein and common femoral vein. No acute DVT is seen. The left femoral vein, popliteal vein, and visualized left tibial veins are patent and compressible. There is no sonographic evidence for deep venous thrombosis the visualized segments of the right lower extremity. IMPRESSION: Isolated post phlebitic changes in the left external iliac vein and left common femoral vein. No acute DVT is appreciated
== END 2017-02-11 00:49 | disposition home or self-care (01) ==
LOC: ED 22:07
DX: H43.391 Other vitreous opacities, right eye (principal); E11.9 Type 2 diabetes mellitus without complications; I10 Essential (primary) hypertension

== ENCOUNTER 2017-12-30 13:03 | Observation (INO) | payer OTHER ==
[2017-12-30] MEDS ORDERED: Clindamycin 600mg/50ml D5W 600 MG/50 ML VIAL IVPB STA (14:41)
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
[2017-12-30 14:51] LABS: VENOUS BLOOD GAS BASE EXCESS -0.4 mmol/L (0.0-2.0); VENOUS BLOOD GAS PO2 43 mm/Hg (30-55); VENOUS BLOOD PH 7.31 (7.32-7.43)
[2017-12-30 14:53] LABS: BASO # 0.02 K/mm3 (0.0-2.0); BASO % 0.2 % (0.0-3.0); EOS % 0.3 % (1.5-5.0); GRAN # 6.84 (1.4-6.5); GRAN % 67.7 % (50.0-68.0); HEMOGLOBIN 10.4 g/dL (14.0-18.0); LYMPH # 1.7 (1.2-3.4); LYMPH % 17.2 % (22.0-35.0); MEAN CELL VOLUME 83.6 fl (80.0-105.0); MEAN CORPUSCULAR HEMOGLOBIN 26.7 pg (25.0-35.0); MEAN CORPUSCULAR HGB CONC 31.9 g/dl (31.0-37.0); MEAN PLATELET VOLUME 9.1 fl (7.0-11.0); MONO # 1.5 (0.1-0.6); MONO % 14.6 % (1.0-6.0); RBC 3.9 10^6/uL (3.5-6.1); RED CELL DISTRIBUTION WIDTH 15.6 % (11.5-14.5); WHITE BLOOD COUNT 10.1 10^3/ul (4.5-11.0)
[2017-12-30 15:02] LABS: ALBUMIN 3.8 g/dL (3.0-4.8); CALCIUM 8.6 mg/dL (8.4-10.5)
--- NOTE | 2017-12-30 16:06 | RAD ---
Date of service: 12/30/2017 HISTORY: cough COMPARISON: 02/10/2017 TECHNIQUE: Chest PA and lateral FINDINGS: LUNGS: No active pulmonary disease. PLEURA: No significant pleural effusion identified. No pneumothorax apparent. CARDIOVASCULAR: Normal. OSSEOUS STRUCTURES: No significant abnormalities. VISUALIZED UPPER ABDOMEN: Normal. OTHER FINDINGS: None. IMPRESSION: No active disease.
[2017-12-30 19:32] VITALS: RESP 20; TEMP 98
[2017-12-30] MEDS ORDERED: oxyCODONE 10 mg ER Tab (oxyCONTIN) PO PRN (20:22)
[2017-12-30 23:32] VITALS: BMI 28.0
[2017-12-30] MEDS ORDERED: Influenza Vaccine 60 mcg/0.5 mL SYR (4YR UP) IM ONE (23:32)
[2017-12-30] MEDS ORDERED: Pneumococcal 23-Valent Vaccine IM ONE (23:32)
[2017-12-31 00:26] VITALS: BP 114/68; PULSE 86; O2SAT 96
[2017-12-31] MEDS ORDERED: DiphenhydrAMINE 50 mg/ml Inj IVP STA (04:19)
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
== END 2017-12-31 06:00 | disposition left against medical advice (07) ==
LOC: ED 13:03 → INTOOBSV 15:28 → ERH 15:28 → 3RNO 18:09
PROVIDERS: ADMIT Internal Medicine; ATTEND Internal Medicine
DX: L03.116 Cellulitis of left lower limb (principal); N17.9 Acute kidney failure, unspecified; G89.29 Other chronic pain; I10 Essential (primary) hypertension; B19.20 Unspecified viral hepatitis C without hepatic coma; Z86.718 Personal history of other venous thrombosis and embolism; Z79.01 Long term (current) use of anticoagulants
CPT/HCPCS: 36415; 71046; 80053; 82803; 83036; 85025; 85651; 86140; 87040; 87389; 96365; 99284; G0378; J0712